=== PATIENT | female | born 1985 ===

== ENCOUNTER 2020-06-11 05:00 | Day surgery (SDC) | payer OTHER ==
[2020-06-08 09:45] LABS: HEMATOCRIT 42.3 % (36.0-48.0); HEMOGLOBIN 14.7 g/dL (12-16); MCH 32.8 pg (26.0-34.0); MCHC 34.8 g/dL (31.0-37.0); MCV 94.4 fL (80.0-100.0); MEAN PLATELET VOLUME 9.3 fL (7.4-10.4); RBC 4.48 10x6/uL (4.00-5.40); RDW 13.5 % (11.5-14.5); WBC 5.4 10x3/uL (4.8-10.8)
[2020-06-08 09:53] LABS: CALC OSMOLALITY 272 mosm/kg (275-300); CALCIUM 8.9 mg/dL (8.5-10.1); CHLORIDE - SERUM 100 mmol/L (98-107); CREATININE - SERUM 0.8 mg/dL (0.6-1.3); GLUCOSE 118 mg/dL (74-106); POTASSIUM - SERUM 3.9 mmol/L (3.5-5.1); SODIUM 137 mmol/L (136-145); UREA NITROGEN 6 mg/dL (7-18); eGFR NON AFRICAN AMERICAN 86 mL/min (90-120)
[~2020-06-11] VITALS: Ht 160 cm; Wt 97.5 kg
[~2020-06-11 05:00] MED LIST: ALBUTEROL SULF8.5 GM INH; CALCIUM 600 +1 EAC3 PO; HCTZ25 MG PO; HYDROCODON-ACE1 EAC7 PO; LEVOTHYROXINE125 MCG PO; NORVASC5 MG PO; POT CHLORIDE TAB 10M PO
[2020-06-11 06:12] VITALS: BP 140/93; Ht 160 cm; Wt 97.5 kg
[2020-06-11 06:22] LABS: HCG URINE NEGATIVE (NEGATIVE)
[2020-06-11] MEDS ORDERED: DIFLUCAN150 MG PO (07:34)
--- NOTE | 2020-06-12 08:22 | OP ---
PATIENT NAME: LORNE MEI MEDICAL RECORD: [id number] :84 LOCATION:[facility] ADMISSION DATE: SURGEON: DEL RAINEY DO DATE OF OPERATION: 06/11/2020 PROCEDURE PERFORMED: Right shoulder arthroscopy with rotator cuff repair using Regeneten implant, biceps tenodesis, subacromial decompression, distal clavicle excision. PREOPERATIVE DIAGNOSES: Right shoulder partial rotator cuff tear, SLAP tear, subacromial impingement and bursitis and acromioclavicular joint arthritis. POSTOPERATIVE DIAGNOSES: Right shoulder partial rotator cuff tear, SLAP tear, subacromial impingement and bursitis and acromioclavicular joint arthritis. INDICATIONS: Ms. Mei is a 35-year-old female who has had right shoulder pain for quite some time. She had an MRI showing the above findings. She wanted something done surgically, she is tired of dealing with the pain and weakness. I told her we could do a Regeneten patch if it was not torn all the way through in the rotator cuff and she was happy with that. She is aware of the risks of the surgery including infection, bleeding, retear, damage to nerves or vessels, need for further surgery, continued pain, arthrofibrosis of the shoulder or adhesive capsulitis, continued pain and even and she signed the consent. SURGEON: Del Rainey DO DESCRIPTION OF PROCEDURE: The patient was taken to the operative suite, laid in the left lateral decubitus position with the right shoulder up. Sedated and LMA was placed. After given a block by anesthesia in preoperative area, given 900 mg clindamycin, the right shoulder was prepped and draped in sterile fashion. Timeout was performed, everyone was in agreement with the correct side, site, patient and procedure. I then inflated the shoulder joint with 60 cc normal saline and through a posterior portal, an 18-gauge spinal needle and then removed that and established a portal with an 11-blade scalpel, trocar entered into the joint. I then established anterior portal with an 18-gauge spinal needle and 11-blade scalpel, trocar entered into that. I then noticed a SLAP tear. She also had a Desirae complex and more than 50% of the articular side of the supraspinatus tendon was torn. Subscapularis tendon was in good repair as was the infraspinatus. No loose body seen in the joint in the inferior gutter. I then brought in a burner and did a biceps tenotomy and a shaver and cleaned up the tear of the supraspinatus. I then went to the subacromial space, established a lateral portal with an 18-inch spinal needle and 11-blade scalpel and then used a burner and shaver to do a subacromial decompression with distal clavicle excision through the anterior portal and then through the lateral portal, acromioplasty removing part of the bursa. I went back into the joint, marked the rotator cuff tendon tear on the articular side and then made an incision over the lateral portal with a 15 blade scalpel, made careful dissection bluntly down with Army-Sebree's to the rotator cuff tendon tear. Removed the bursa, put a large Regeneten implant on and stapled it into place medial and laterally and then went to the anterior humerus, made an incision and dissected out the long head of the biceps tendon and put a whipstitch in the head and then unicortically put a hole in the humerus, put a 2.9 JuggerLoc biceps tenodesis anchor in and tied the whipstitch around the anchor loop of the tendon through the loop and cinched it down to the humerus. I then used a free OPERATIVE REPORT [id number] LORNE MEI needle and went back through the long head of the biceps tendon and tied it down. Cut the excess tendon and suture, then irrigated. Luna Dahl, certified regional vice president surgical sales, then closed the open sites with 2-0 Vicryl in inverted interrupted fashion, 4-0 Monocryl running in the skin, the portal sites with 4-0 Monocryl in inverted interrupted fashion and placed Dermabond glue on all of them and once that dried, Telfa and Tegaderm. She was awakened and put in a sling and taken to recovery in stable condition. BLOOD LOSS: Minimal. COMPLICATIONS: None. TRANSINT:[id number] Voice Confirmation ID: [id number] DOCUMENT ID: [id number] DEL RAINEY DO at 0822 CC: [id number] DICTATION DATE: 06/11/20851 RESTAURANT EXPEDITOR: 06/11/201933 [facility] 06/11/20 [facility] [address] [id number]
== END 2020-06-11 11:00 | disposition home or self-care (01) ==
LOC: D.OPS 05:00
PROVIDERS: Anesthesiology; ATTEND Orthopaedic Surgery
DX: S43.431A Superior glenoid labrum lesion of right shoulder, initial encounter (principal); X58.XXXA Exposure to other specified factors, initial encounter; M75.101 Unspecified rotator cuff tear or rupture of right shoulder, not specified as traumatic; M13.811 Other specified arthritis, right shoulder; M25.511 Pain in right shoulder; M75.41 Impingement syndrome of right shoulder; I10 Essential (primary) hypertension; F17.200 Nicotine dependence, unspecified, uncomplicated